=== PATIENT | male | born 1960 | race Hispanic/Latino ===

== ENCOUNTER 2017-11-10 07:56 | Day surgery (SDC) | payer MEDICAID ==
[2017-11-10 08:20] VITALS: BP 90/54
[2017-11-10] MEDS ORDERED: METO25TA6 PO (08:54)
[2017-11-10] MEDS ORDERED: DOCU-116 PO (08:54)
[2017-11-10] MEDS ORDERED: CLOT60SP TP (08:54)
[2017-11-10] MEDS ORDERED: CLON0.2T PO (08:54)
[2017-11-10] MEDS ORDERED: FINA5TAB41 PO (08:54)
[2017-11-10] MEDS ORDERED: FOLI1TAB15 PO (08:54)
[2017-11-10] MEDS ORDERED: METF500T6 PO (08:54)
[2017-11-10] MEDS ORDERED: DOXA1TAB2 PO (08:54)
[2017-11-10] MEDS ORDERED: SIMV40TA59 PO (08:54)
[2017-11-10] MEDS ORDERED: LEVO25TA54 PO (08:54)
[2017-11-10] MEDS ORDERED: INSU100V12 SQ (08:54)
[2017-11-10] MEDS ORDERED: DIVA-78 PO (08:54)
[2017-11-10] MEDS ORDERED: CLOT15C TP (08:54)
[2017-11-10] MEDS ORDERED: CLOT30SO2 TP (08:54)
[2017-11-10] MEDS ORDERED: CLOZ200T PO (08:54)
[2017-11-10] MEDS ORDERED: LACT10SO PO (08:54)
[2017-11-10] MEDS ORDERED: SENN-175 PO (08:54)
[2017-12-21] MEDS ORDERED: CLON0.252 PO (14:52)
== END 2017-11-10 09:00 | disposition home or self-care (01) ==
LOC: DAH 07:56
PROVIDERS: ATTEND Internal Medicine
DX: D50.9 Iron deficiency anemia, unspecified (principal); Z53.9 Procedure and treatment not carried out, unspecified reason
CPT/HCPCS: 82948

== ENCOUNTER 2017-12-22 08:07 | Day surgery (SDC) | payer MEDICAID ==
[~2017-12-22] VITALS: Ht 165.1 cm; Wt 62.7 kg
[~2017-12-22 08:07] MED LIST: CLON0.252 PO; CLON0.2T PO; CLOT15C TP; CLOT30SO2 TP; CLOT60SP TP; CLOZ200T PO; DIVA-78 PO; DOCU-116 PO; DOXA1TAB2 PO; FINA5TAB41 PO; FOLI1TAB15 PO; INSU100V12 SQ; LACT10SO PO; LEVO25TA54 PO; METF500T6 PO; METO25TA6 PO; SENN-175 PO; SIMV40TA59 PO; SODIUM CHLORIDE 0.9% 1000ML 1,000 ML IV ONE
[2017-12-22 10:01] VITALS: BP 103/57
[2017-12-22] MEDS ORDERED: CLOZ25TA4 PO (10:35)
[2017-12-22 11:27] VITALS: BP 84/46
== END 2017-12-22 12:23 | disposition home or self-care (01) ==
LOC: ENDO 08:07
PROVIDERS: ATTEND Internal Medicine
DX: D50.8 Other iron deficiency anemias (principal); K59.00 Constipation, unspecified; K20.9 Esophagitis, unspecified; L53.8 Other specified erythematous conditions; K22.8 Other specified diseases of esophagus; K29.50 Unspecified chronic gastritis without bleeding; Z79.899 Other long term (current) drug therapy; E11.9 Type 2 diabetes mellitus without complications; Z79.4 Long term (current) use of insulin; E03.8 Other specified hypothyroidism
CPT/HCPCS: 43239; 45378; 82948 ×2; 88305; 88312; 88342; A4606; J7030

== ENCOUNTER 2018-07-03 08:53 | Day surgery (SDC) | payer MEDICAID ==
[~2018-07-03] VITALS: Ht 165.1 cm; Wt 73.3 kg
[~2018-07-03 08:53] MED LIST changes: -CLON0.252 PO; -CLOT15C TP; -CLOT30SO2 TP; -CLOT60SP TP; +CLOZ25TA4 PO; +METF-444 PO; -METF500T6 PO; +MULT-1203 PO; +PANT40TA PO; -SODIUM CHLORIDE 0.9% 1000ML 1,000 ML IV ONE
[2018-07-03 09:33] VITALS: BP 138/70
[2018-07-03] MEDS ORDERED: SODIUM CHLORIDE 0.9% 1000ML 1,000 ML IV ONE (09:56)
[2018-07-03] MEDS ORDERED: PROPOFOL 10 MG/ML 20ML VIAL IV ONE (10:18)
[2018-07-03 10:42] VITALS: BP 86/44
[2018-07-03 10:47] VITALS: BP 87/44
[2018-07-03 10:57] VITALS: BP 89/50
== END 2018-07-03 11:30 | disposition home or self-care (01) ==
LOC: DAH 08:53 → ENDO 08:53
PROVIDERS: ATTEND Internal Medicine
DX: D50.9 Iron deficiency anemia, unspecified (principal); E11.9 Type 2 diabetes mellitus without complications; E03.9 Hypothyroidism, unspecified; Z79.899 Other long term (current) drug therapy; Z79.84 Long term (current) use of oral hypoglycemic drugs; G40.909 Epilepsy, unspecified, not intractable, without status epilepticus; K21.0 Gastro-esophageal reflux disease with esophagitis
CPT/HCPCS: 45378; 82948 ×2; A4606; J2704; J7030; 45380

== ENCOUNTER 2018-07-05 06:00 | Day surgery (SDC) | payer MEDICAID ==
[~2018-07-05] VITALS: Ht 165.1 cm; Wt 72.8 kg
[2018-07-05] VITALS (8 sets, daily range): BP systolic 81–155; BP diastolic 46–73
[~2018-07-05 06:00] MED LIST changes: +SODIUM CHLORIDE 0.9% 1000ML 1,000 ML IV ONE
[2018-07-05] MEDS ORDERED: PROPOFOL 10 MG/ML 20ML VIAL IV ONE ×3 (08:31→09:06)
== END 2018-07-05 10:11 | disposition home or self-care (01) ==
LOC: DAH 06:00
PROVIDERS: ATTEND Internal Medicine
DX: D50.9 Iron deficiency anemia, unspecified (principal); K63.89 Other specified diseases of intestine; R56.9 Unspecified convulsions; E11.9 Type 2 diabetes mellitus without complications; Z79.899 Other long term (current) drug therapy; Z79.84 Long term (current) use of oral hypoglycemic drugs; Z79.4 Long term (current) use of insulin; K21.0 Gastro-esophageal reflux disease with esophagitis; E03.9 Hypothyroidism, unspecified; F41.9 Anxiety disorder, unspecified; E78.5 Hyperlipidemia, unspecified; N40.0 Benign prostatic hyperplasia without lower urinary tract symptoms; E66.3 Overweight; I70.90 Unspecified atherosclerosis
CPT/HCPCS: 45380; 82948 ×2; A4606; J2704 ×3; J7030